=== PATIENT | female | born 1960 | race Caucasian/White ===

== ENCOUNTER 2019-11-21 00:53 | Emergency (ER) | payer OTHER ==
[~2019-11-21] VITALS: Ht 167.6 cm; Wt 77.1 kg
[2019-11-21 01:17] LABS: HEMOGLOBIN 14.6 gm/dL (12.0-15.0); NUCLEATED RBCS 0 /100WBC
[2019-11-21 01:23] LABS: HEMATOCRIT 42.5 % (37.0-47.0); MCH 32.4 pg (26.0-34.0); MCHC 34.3 g/dL (28.0-37.0); MCV 94.5 fL (80.0-100.0); MPV 8.2 fl. (7.2-11.1); PLATELET COUNT* 273 thou/uL (150-400); RBC 4.49 mil/uL (4.20-5.00); RDW-CV 12.9 % (10.5-14.5)
[2019-11-21 01:27] LABS: APTT 25.7 Seconds (25.0-31.3); PROTIME 9.8 Seconds (9.20-11.50)
[2019-11-21 01:32] LABS: CALCIUM 8.2 mg/dL (8.5-10.1); CREATININE 0.8 mg/dL (0.6-1.3); POTASSIUM 3.4 mmol/L (3.5-5.1)
[2019-11-21 01:46] LABS: ALBUMIN 3.9 g/dL (3.4-5.0); MAGNESIUM 2.2 mg/dL (1.8-2.4); TOTAL BILIRUBIN 0.4 mg/dL (<0.1-1.0); TOTAL PROTEIN 7.5 g/dL (6.4-8.2)
[2019-11-21 02:59] LABS: ABSOLUTE LYMPHOCYTES 4.7 thou/uL (0.8-5.3); ABSOLUTE MONOCYTES 0.5 thou/uL (0.0-1.2); ABSOLUTE NEUTROPHILS 7.8 thou/uL (1.6-8.1); PLATELET ESTIMATE ADEQUATE
[2019-11-21] MEDS ORDERED: CARAFATE 1 GM TA1 G1 PO (03:57)
[2019-11-21 04:05] VITALS: BP 120/70
--- NOTE | 2019-11-21 11:20 | EKG ---
[place] [address] ELECTROCARDIOGRAM REPORT Name: MINESH TOMLINSON Room: [facility]#: [id number] Admission: 11/21/19 Attend Phys: Discharge: 11/21/19 Date of : 56 Report #: [id number] THIS REPORT FOR: //name// [facility] ED Test Date: 2019-11-21 Test Time: 00:59:14 Pat Name: MINESH ALATORRESHA Department: Room: Gender: F [employer]: : 1960 Requested By: Tyler Castellanos Order Number: [id number] MD: Aguilar Jean Measurements Intervals [place] Rate: 79 P: 66 [place]: 145 QRS: 69 QRSD: 93 T: 59 QT: 381 QTc: 437 Interpretive Statements Sinus rhythm Compared to ECG 08/01/2008 10:48:30 No significant changes Electronically Signed On 11-21-2019 11:19:46 [employer]YING R[employer] CHANGER by Aguilar Jean [email or web address] <ELECTRONICALLY SIGNED> By: Aguilar Jean MD, [facility] 11/21/19 1119 0059 0059 Aguilar Jean MD, FACC /EPI
--- NOTE | 2019-11-21 11:20 | EKG ---
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
== END 2019-11-21 04:05 | disposition home or self-care (01) ==
LOC: M.ERS 00:53
PROVIDERS: Emergency Medicine Emergency Medical Services
DX: R07.89 Other chest pain (principal); F17.210 Nicotine dependence, cigarettes, uncomplicated; Z90.49 Acquired absence of other specified parts of digestive tract